=== PATIENT | male | born 1940 | race Caucasian/White ===

== ENCOUNTER 2017-11-05 08:19 | Inpatient (IN) | payer MEDICARE, BC, SELFPAY ==
[2017-11-05 08:27] VITALS: BP 149/57; PULSE 62; RESP 26; TEMP 36.6; O2SAT 97; BMI 38.1
--- NOTE | 2017-11-05 08:39 | DI.RAD.S_ITS ---
PROCEDURE: XR ABDOMEN 1V INDICATIONS: severe abdominal pain, distension TECHNIQUE: One view of the abdomen acquired. COMPARISON: [facility], CT, ABDOMEN/PELVIS WITH CONTRAST, 07/27/2017, 11:15. FINDINGS: Surgical changes and devices: None. Bowel: Bowel gas pattern is normal. Soft tissues: Less than 5 mm densities project in the region of the right kidney corresponding to nephrolithiasis visualized on the CT from 07/27/17 Bones: No suspicious bony lesions. IMPRESSION: Right nephrolithiasis. No bowel obstruction Dictated by: Wayne Fonseca M.D. on 11/05/2017 at 9:44 Approved by: Wayne Fonseca M.D. on 11/05/2017 at 9:45
--- NOTE | 2017-11-05 08:40 | ED.ABDPAIN ---
HPI - Abdominal Pain General Chief Complaint: Abdominal Pain Stated Complaint: pt states abdomen pain Time Seen by Provider: 11/05/17 08:25 Source: patient and family Mode of arrival: ambulatory Limitations: no limitations History of Present Illness HPI narrative: 77-year-old male with history of pancreatitis presents to the emergency department with complaints of the same. He has severe epigastric pain with radiation to his back and nausea that started this morning after drinking water. He denies fever or chills. He had a normal bowel movement last night. MD complaint: abdominal pain Onset (ago): hour(s) Pain Consistency: constant Location: epigastric Severity: severe Radiation: back Migration to: no migration Relieving factors: nothing Exacerbating factors: nothing Associated symptoms: nausea Related Data Home Medications Medication Instructions Recorded Confirmed fenofibrate nanocrystallized 145 mg PO QDAY #0 10/31/12 [Tricor] folic acid 1 mg PO QDAY #0 10/31/12 glyburide 5 mg PO BID #0 10/31/12 lisinopril 40 mg PO QDAY #0 10/31/12 amlodipine [Norvasc] 2.5 mg PO QDAY #0 09/13/16 hydrocortisone 1 moise TOPICAL BIDP PRN #0 09/13/16 pantoprazole 40 mg PO QDAY #0 09/13/16 albuterol sulfate [Ventolin HFA] 2 puff INH PRN PRN #0 07/27/17 apixaban [Eliquis] 5 mg PO BID #0 07/27/17 colchicine 0.6 mg PO BIDP PRN #0 07/27/17 doxazosin 8 mg PO HS #0 07/27/17 hydrocortisone 1 moise TOPICAL PRN PRN #0 07/27/17 levothyroxine [Synthroid] 25 mcg PO QAM #0 07/27/17 Previous Rx's Medication Instructions Recorded hydrocodone-acetaminophen 1 tab PO Q6HP PRN #10 tab 07/30/17 Allergies Allergy/AdvReac Type Severity Reaction Status Date / Time No Known Drug Allergies Allergy Unknown Unverified 09/06/17 12:00 [NO KNOWN DRUG ALLERGIES] metformin [METFORMIN] AdvReac Mild GI UPSET Unverified 09/06/17 12:00 Review of Systems Review of Systems All systems reviewed & are unremarkable except as noted in HPI and below Constitutional Denies chills, Denies fever(s), Denies lethargy and Denies weakness Eyes Denies change in vision, Denies eye discharge, Denies irritation and Denies loss of vision ENT Ears, Nose, Mouth, and Throat: Denies change in voice, Denies neck pain and Denies sore throat Cardiovascular Denies chest pain, Denies irregular heart rhythm, Denies lightheadedness, Denies palpitations, Denies dyspnea, Denies dyspnea on exertion and Denies orthopnea Respiratory Denies cough, Denies dyspnea, Denies dyspnea on exertion and Denies wheezing Gastrointestinal Gastrointestinal: Reports abdominal pain, Denies change in bowel habits, Denies diarrhea, Reports nausea and Denies vomiting Genitourinary Denies hematuria, Denies flank pain, Denies urinary incontinence and Denies urinary urgency Musculoskeletal Denies neck pain Integumentary/Breasts Denies pruritus, Denies erythema, Denies rash and Denies wounds Neurologic Denies confusion, Denies loss of vision and Denies weakness Psychiatric Denies anxiety, Denies confusion, Denies depression, Denies homicidal ideation and Denies suicidal ideation Endocrine Denies palpitations Hematologic/Lymphatic Denies easy bruising Allergic/Immunologic Denies wheezing [facility] Social History Smoking Status: Never smoker Exam Narrative Exam Narrative: 77-year-old male clutching his abdomen up, obviously in pain Initial Vital Signs Initial Vital Signs: Vital Signs Temperature 97.8 F 11/05/17 08:27 Pulse Rate 62 11/05/17 08:27 Respiratory Rate 26 H 11/05/17 08:27 Blood Pressure 149/57 H 11/05/17 08:27 Pulse Oximetry 97 11/05/17 08:27 Const General: cooperative, well developed and acute distress Nutritional Appearance: well nourished and obese Orientation: alert, awake, oriented x3 and not confused [facility] Head: normocephalic and atraumatic Ears: external ears normal and TM's normal bilaterally Nose: external nose normal and No nasal discharge Face and sinus: sinuses nontender, face symmetric, no sinus tenderness and No dry mucous membranes Mouth: oral mucosae normal and moist mucous membranes Teeth and gingiva: dentition normal Throat: tonsils normal and uvula midline Chest Chest: normal inspection of the chest Cardio Rate: regular rate Rhythm: regular rhythm Heart Sounds: no click, no gallops, no murmurs and no rubs Pulses: normal peripheral pulses GI Inspection: distended and obesity Palpation: firm and guarding Back/Spine/Pelvis Back: No CVA tenderness Cervical Spine: cervical ROM normal and No pain with cervical ROM Thoracic/Lumbar Spine: thoracic and lumbar spine normal to inspection Neuro General: alert, oriented x3, gait normal and no focal motor deficits Speech: speech normal Psych Appearance: well kempt Mental Status: mental status grossly normal Attitude: cooperative Thought Content: normal and suicidality Judgment: judgment good Course Orders Ordered: ED Orders 11/05/17 08:39 XR abdomen 1V Stat 11/05/17 08:40 US abdomen complete Stat 11/05/17 08:53 Complete Blood Count AUTO DIFF Stat Comprehensive Metabolic Panel Stat Lipase Stat Sodium Chloride (Normal Saline 0.9%) 1,000 mls @ 150 mls/hr IV CONT ISABEL Last Admin: 11/05/17 08:50 Dose: 150 mls/hr Discontinued Medications Hydromorphone HCl (Dilaudid) 0.5 mg IV NOW ONE Stop: 11/05/17 08:39 Last Admin: 11/05/17 08:50 Dose: 0.5 mg Hydromorphone HCl (Dilaudid) 0.5 mg IV NOW ONE Stop: 11/05/17 09:10 Last Admin: 11/05/17 09:17 Dose: 0.5 mg Ondansetron HCl (Zofran) 4 mg IV NOW ONE Stop: 11/05/17 08:39 Last Admin: 11/05/17 08:51 Dose: 4 mg Reevaluation(s) Reevaluation #1: Patient does feel somewhat better after 1st dose of Dilaudid but has residual pain. Will order a 2nd round Consultations Consultation #1: Dr. Collins is happy to accept this patient on his service Time: 10:19 Vital Signs - 8 hr 11/05/17 08:27 11/05/17 10:00 Temperature 97.8 F Pulse Rate 62 68 Respiratory Rate 26 H 15 Blood Pressure 149/57 H Blood Pressure [Right Arm] 130/64 H Pulse Oximetry 97 97 MDM - Abdominal Pain Differential Diagnosis Differential diagnosis: Likely abdominal pain and small bowel obstruction Medical Records Attestation: I reviewed the patient's medical records. Lab Data Attestation: I reviewed the patient's lab results. Result diagrams: 11/05/17 08:53 06/10/18 08:53 Lab Results 11/05/1718 Range/Units 08:53 08:53 WBC 14.1 H (4.5-11.0) X10^3/uL RBC 4.22 L (4.5-5.9) X10^6/uL Hgb 13.6 (13.5-17.5) g/dL Hct 40.4 L (41-53) % MCV 95.5 (80-100) fL MCH 32.1 (26-34) PG MCHC 33.6 (30-36) % RDW 13.6 (11.6-14.8) % Plt Count 185 (150-400) X10^3/uL Neut % (Auto) 86.8 H (50-75) % Lymph % (Auto) 8.3 L (25-40) % [place] % (Auto) 4.6 (3-14) % Eos % (Auto) 0.1 L (2-4) % Baso % (Auto) 0.2 (0-2) % Neut # (Auto) 90701 H (7172-1404) /uL Sodium 140 (137-145) mmol/L Potassium 4.9 (3.4-5.1) mmol/L Chloride 107 (98-107) mmol/L Carbon Dioxide 20 L (22-32) mmol/L BUN 31 H (9-20) mg/dL Creatinine 1.10 (0.66-1.25) mg/dL Estimated GFR > 60.0 (>60) mL/min BUN/Creatinine Ratio 28.2 H (6-22) Glucose 227 H (80-110) mg/dL Calcium 9.2 (8.4-10.2) mg/dL Total Bilirubin 0.5 (0.2-1.3) mg/dL AST 20 (17-59) IU/L ALT 43 (21-72) IU/L Alkaline Phosphatase 41 (38-126) U/L Total Protein 6.8 (6.3-8.2) g/dL Albumin 4.1 (3.5-5.0) g/dL Globulin 2.7 (1.7-4.1) g/dL Albumin/Globulin Ratio 1.5 (1.0-2.8) Lipase 28638 H (23-300) U/L Imaging Data US - abdomen: Radiologist's impression: PROCEDURE: US ABDOMEN COMPLETE INDICATIONS: POST PRANDIAL EPIGASTRIC PAIN TECHNIQUE: Real-time scanning was performed of the abdominal and retroperitoneal organs, with image documentation. COMPARISON: None. FINDINGS: Liver: Echogenic liver is present. No focal hepatic lesion is seen. The liver measures 17.9 cm in length. Gallbladder: Unremarkable. No sonographic Carpenter sign. Biliary ducts: Intrahepatic bile ducts are non-dilated. Extrahepatic bile duct caliber measures 5-6 mm. Normal is 6-7 mm or less in diameter, or 10 mm or less post-cholecystectomy. Pancreas: Pancreas not well-visualized Spleen: Spleen is normal in size and homogeneous in echotexture. Kidneys: Kidneys are normal in size and echotexture. Right kidney measures 11.9 cm long; left kidney measures 14.6 cm long. No hydronephrosis or nephrolithiasis. No solid masses. Aorta: Visualized aorta is normal in caliber at less than 3 cm. Iliacs: Proximal common iliac arteries are normal in caliber at less than 2.5 cm. IVC: Intrahepatic inferior vena cava is patent. Miscellaneous: No free abdominal fluid. IMPRESSION: Hepatic steatosis. Of note, pancreas not well sonographically visualized therefore please correlate clinically and with pancreatic enzymes if needed. Dictated by: Wayne Fonseca M.D. on 11/05/2017 at 10:05 Approved by: Wayne Fonseca M.D. on 11/05/2017 at 10:06 Discharge Plan Departure Patient Disposition: Admitted As Inpatient Clinical Impression: Pancreatitis
[2017-11-05] MEDS: SODIUM CHLORIDE 0.9% 1,000 ML 150 ML IV ×4 (08:50→21:12)
[2017-11-05] MEDS: HYDROMORPHONE 1 MG INJ 0.5 MG IV (08:50)
[2017-11-05] MEDS: ONDANSETRON 4 MG/2 ML INJ IV (08:51)
[2017-11-05 09:11] LABS: Add Manual Diff / Slide Review NO; Basophils Percent Auto 0.2 % (0-2); Eosinophils Percent Auto 0.1 % (2-4); Hematocrit 40.4 % (41-53); Hemoglobin 13.6 g/dL (13.5-17.5); Lymphocytes Percent Auto 8.3 % (25-40); Mean Corpuscular HGB Conc 33.6 % (30-36); Mean Corpuscular Hemoglobin 32.1 PG (26-34); Mean Corpuscular Volume 95.5 fL (80-100); Monocytes Percent Auto 4.6 % (3-14); Neutrophils Absolute Auto 12200 /uL (3000-5900); Neutrophils Percent Auto 86.8 % (50-75); Platelet Count 185 X10^3/uL (150-400); Red Blood Cell Count 4.22 X10^6/uL (4.5-5.9); Red Cell Distribution Width 13.6 % (11.6-14.8); White Blood Cell Count 14.1 X10^3/uL (4.5-11.0)
[2017-11-05 09:14] LABS: HEMOLYSIS < 15 (0-50); Potassium 4.9 mmol/L (3.4-5.1)
[2017-11-05 09:15] LABS: Alanine Aminotransferase 43 IU/L (21-72); Albumin 4.1 g/dL (3.5-5.0); Albumin Globulin Ratio 1.5 (1.0-2.8); Alkaline Phosphatase 41 U/L (38-126); Aspartate Aminotransferase 20 IU/L (17-59); BUN Creatinine Ratio 28.2 (6-22); Bilirubin Total 0.5 mg/dL (0.2-1.3); Blood Urea Nitrogen 31 mg/dL (9-20); Calcium 9.2 mg/dL (8.4-10.2); Carbon Dioxide 20 mmol/L (22-32); Chloride 107 mmol/L (98-107); Estimated Glomerular Filt Rate > 60.0 mL/min (>60); Globulin 2.7 g/dL (1.7-4.1); Glucose 227 mg/dL (80-110); Sodium 140 mmol/L (137-145); Total Protein 6.8 g/dL (6.3-8.2)
[2017-11-05] MEDS: HYDROMORPHONE 0.5 MG INJ IV (09:17)
[2017-11-05 09:43] LABS: Lipase 14814 U/L (23-300)
[2017-11-05 10:00] VITALS: BP 130/64; PULSE 68; RESP 15; O2SAT 97
[2017-11-05 11:02] VITALS: BP 130/64; PULSE 75; RESP 22; O2SAT 96
[2017-11-05 11:10] VITALS: BP 148/79; PULSE 70; RESP 20; TEMP 36.2; O2SAT 97
[2017-11-05 11:11] VITALS: BMI 38.5
[2017-11-05] MEDS: MORPHINE 4 MG/ML INJ IV (11:38)
[2017-11-05] MEDS: SODIUM CHLORIDE 0.9% 1,000 ML 1000 ML IV (11:38)
--- NOTE | 2017-11-05 11:55 | PM.HP.1 ---
History of Present Illness Date Patient Seen: 11/05/17 Time Patient Seen: 11:55 Chief complaint: pt states abdomen pain Narrative: This is a 77-year-old male patient of Dr. Adonis Winslow who comes in with acute abdominal pain. The discomfort started at 4:30 a.m. this morning after he woke up and had a sip of water. He describes the pain as excruciating we severe. It is across the mid abdomen. It does not radiate to the back or chest. He denies nausea, dry heaves or vomiting. Lab workup notable for lipase of over 14,000. Abdominal ultrasound without gallstones, sludge or bowel duct dilatation. Patient was hospitalized in July of this year with acute pancreatitis. At that time his abdominal ultrasound was also normal. His abdominal CT scan with contrast did not show any pancreatic mass or other concerning findings. Patient has diabetes. His triglycerides are adequately controlled on his cholesterol medications. He denies significant alcohol use. Patient History Medical History Pancreatitis (Acute) Type 2 diabetes mellitus (Acute) Paroxysmal atrial fibrillation (Acute) Obstructive sleep apnea (Acute) Hypertension (Acute) Hyperlipidemia (Acute) Deep venous thrombosis (Acute) Asthma (Acute) Hypothyroidism (Acute) Radiation proctitis (Acute) Gastric ulcer (Acute) BPH (benign prostatic hyperplasia) (Acute) Obesity (Acute) Gout (Acute) History of colon cancer (Acute) Surgical History History of appendectomy (Acute) History of partial colectomy (Acute) Family & Social History Safety & Behavioral: Feels Safe in Current Yes Environment Tobacco & Substance use: Smoking Status Never smoker alcohol intake frequency 0-2 drinks per day Substance Use Type does not use Meds Home Medications Medication Instructions Recorded Confirmed Type fenofibrate nanocrystallized 145 mg PO QDAY #0 10/31/12 History [Tricor] folic acid 1 mg PO QDAY #0 10/31/12 History glyburide 5 mg PO BID #0 10/31/12 History lisinopril 40 mg PO QDAY #0 10/31/12 History amlodipine [Norvasc] 2.5 mg PO QDAY #0 09/13/16 History hydrocortisone 1 moise TOPICAL BIDP PRN #0 09/13/16 History pantoprazole 40 mg PO QDAY #0 09/13/16 History albuterol sulfate [Ventolin HFA] 2 puff INH PRN PRN #0 07/27/17 History apixaban [Eliquis] 5 mg PO BID #0 07/27/17 History colchicine 0.6 mg PO BIDP PRN #0 07/27/17 History doxazosin 8 mg PO HS #0 07/27/17 History hydrocortisone 1 moise TOPICAL PRN PRN #0 07/27/17 History levothyroxine [Synthroid] 25 mcg PO QAM #0 07/27/17 History hydrocodone-acetaminophen 1 tab PO Q6HP PRN #10 tab 07/30/17 Rx Allergies Allergy/AdvReac Type Severity Reaction Status Date / Time No Known Drug Allergies Allergy Unknown Unverified 09/06/17 12:00 [NO KNOWN DRUG ALLERGIES] metformin [METFORMIN] AdvReac Mild GI UPSET Unverified 09/06/17 12:00 Review of Systems Review of Systems All systems reviewed & are unremarkable except as noted in HPI and below Exam Vital Signs (past 8 hours): Vital Signs - 8 hr 11/05/17 08:27 11/05/17 10:00 11/05/17 11:02 Temperature 97.8 F Pulse Rate 62 68 75 Respiratory Rate 26 H 15 22 Blood Pressure 149/57 H 130/64 H Blood Pressure [Right Arm] 130/64 H Pulse Oximetry 97 97 96 Pulse Oximetry 96 Oxygen Delivery Method Room Air Narrative Exam Narrative: GENERAL: This is an elderly male lying in bed who appears quite uncomfortable. HEAD: Atraumatic. Normocephalic. EYES: Pupils equal, round and reactive. Extraocular motions intact. No scleral icterus. No injection or drainage. OROPHARYNX: moist mucosa NECK: Trachea midline. No JVD or lymphadenopathy. CARDIOVASCULAR: Regular rate and rhythm without murmurs, gallops, or rubs. RESPIRATORY: Clear to auscultation bilaterally. GASTROINTESTINAL: Abdomen obese, soft, tender across the mid abdomen Extremities: No edema NEUROLOGICAL: Alert, well oriented, speech is intact, normal bilateral upper and lower extremity strength SKIN: warm, dry, no rash Objective Imaging US - abdomen: Radiologist's impression: Hepatic steatosis. Of note, pancreas not well sonographically visualized therefore please correlate clinically and with pancreatic enzymes if needed. Labs Result Diagrams: 11/05/17 08:53 11/05/17 08:53 Labs: Laboratory Results - last 24 hr 11/05/17 11/05/17 08:53 08:53 WBC 14.1 H RBC 4.22 L Hgb 13.6 Hct 40.4 L MCV 95.5 MCH 32.1 MCHC 33.6 RDW 13.6 Plt Count 185 Neut % (Auto) 86.8 H Lymph % (Auto) 8.3 L [place] % (Auto) 4.6 Eos % (Auto) 0.1 L Baso % (Auto) 0.2 Neut # (Auto) 04120 H Sodium 140 Potassium 4.9 Chloride 107 Carbon Dioxide 20 L BUN 31 H Creatinine 1.10 Estimated GFR > 60.0 BUN/Creatinine Ratio 28.2 H Glucose 227 H Calcium 9.2 Total Bilirubin 0.5 AST 20 ALT 43 Alkaline Phosphatase 41 Total Protein 6.8 Albumin 4.1 Globulin 2.7 Albumin/Globulin Ratio 1.5 Lipase 02357 H Assessment & Plan Plan: Assessment/Plan Narrative: 1. Acute recurrent pancreatitis: Patient presents with acute abdominal pain, lipase over 14,000, no significant alcohol history, no gallstones or sludge on ultrasound, normal triglycerides. He had previous episode of acute pancreatitis in July of this year. CT scan in July of this year unremarkable. 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 Consider outpatient GI referral. 2. Type 2 diabetes: Glucose 200 range. Hold glyburide due to uncertain p.o. intake. NovoLog sliding scale. 3. Paroxysmal atrial fibrillation, history of DVT: Continue Eliquis 5 mg twice daily. 4. Sleep apnea: Continue patient is on CPAP. 5. Hypertension, hyperlipidemia, hypothyroidism: Continue routine medications. 6. Disposition: Inpatient admit.
--- NOTE | 2017-11-05 12:05 | P.HP_ITS ---
History of Present Illness Date Patient Seen: 11/05/17 Time Patient Seen: 11:55 Chief complaint: pt states abdomen pain Narrative: This is a 77-year-old male patient of Dr. Adonis Winslow who comes in with acute abdominal pain. The discomfort started at 4:30 a.m. this morning after he woke up and had a sip of water. He describes the pain as excruciating we severe. It is across the mid abdomen. It does not radiate to the back or chest. He denies nausea, dry heaves or vomiting. Lab workup notable for lipase of over 14,000. Abdominal ultrasound without gallstones, sludge or bowel duct dilatation. Patient was hospitalized in July of this year with acute pancreatitis. At that time his abdominal ultrasound was also normal. His abdominal CT scan with contrast did not show any pancreatic mass or other concerning findings. Patient has diabetes. His triglycerides are adequately controlled on his cholesterol medications. He denies significant alcohol use. Patient History Medical History Pancreatitis (Acute) Type 2 diabetes mellitus (Acute) Paroxysmal atrial fibrillation (Acute) Obstructive sleep apnea (Acute) Hypertension (Acute) Hyperlipidemia (Acute) Deep venous thrombosis (Acute) Asthma (Acute) Hypothyroidism (Acute) Radiation proctitis (Acute) Gastric ulcer (Acute) BPH (benign prostatic hyperplasia) (Acute) Obesity (Acute) Gout (Acute) History of colon cancer (Acute) Surgical History History of appendectomy (Acute) History of partial colectomy (Acute) Family & Social History Safety & Behavioral: Feels Safe in Current Yes Environment Tobacco & Substance use: Smoking Status Never smoker alcohol intake frequency 0-2 drinks per day Substance Use Type does not use Meds Home Medications Medication Instructions Recorded Confirmed Type fenofibrate nanocrystallized 145 mg PO QDAY #0 10/31/12 History [Tricor] folic acid 1 mg PO QDAY #0 10/31/12 History glyburide 5 mg PO BID #0 10/31/12 History lisinopril 40 mg PO QDAY #0 10/31/12 History amlodipine [Norvasc] 2.5 mg PO QDAY #0 09/13/16 History hydrocortisone 1 moise TOPICAL BIDP PRN #0 09/13/16 History pantoprazole 40 mg PO QDAY #0 09/13/16 History albuterol sulfate [Ventolin HFA] 2 puff INH PRN PRN #0 07/27/17 History apixaban [Eliquis] 5 mg PO BID #0 07/27/17 History colchicine 0.6 mg PO BIDP PRN #0 07/27/17 History doxazosin 8 mg PO HS #0 07/27/17 History hydrocortisone 1 moise TOPICAL PRN PRN #0 07/27/17 History levothyroxine [Synthroid] 25 mcg PO QAM #0 07/27/17 History hydrocodone-acetaminophen 1 tab PO Q6HP PRN #10 tab 07/30/17 Rx Allergies Allergy/AdvReac Type Severity Reaction Status Date / Time No Known Drug Allergies Allergy Unknown Unverified 09/06/17 12:00 [NO KNOWN DRUG ALLERGIES] metformin [METFORMIN] AdvReac Mild GI UPSET Unverified 09/06/17 12:00 Review of Systems Review of Systems All systems reviewed & are unremarkable except as noted in HPI and below Exam Vital Signs (past 8 hours): Vital Signs - 8 hr 3 11/05/17 08:27 11/05/17 10:00 11/05/17 11:02 Temperature 97.8 F Pulse Rate 62 68 75 Respiratory Rate 26 H 15 22 Blood Pressure 149/57 H 130/64 H Blood Pressure [Right Arm] 130/64 H Pulse Oximetry 97 97 96 Pulse Oximetry 96 Oxygen Delivery Method Room Air Narrative Exam Narrative: GENERAL: This is an elderly male lying in bed who appears quite uncomfortable. HEAD: Atraumatic. Normocephalic. EYES: Pupils equal, round and reactive. Extraocular motions intact. No scleral icterus. No injection or drainage. OROPHARYNX: moist mucosa NECK: Trachea midline. No JVD or lymphadenopathy. CARDIOVASCULAR: Regular rate and rhythm without murmurs, gallops, or rubs. RESPIRATORY: Clear to auscultation bilaterally. GASTROINTESTINAL: Abdomen obese, soft, tender across the mid abdomen Extremities: No edema NEUROLOGICAL: Alert, well oriented, speech is intact, normal bilateral upper and lower extremity strength SKIN: warm, dry, no rash Objective Imaging US - abdomen: Radiologist's impression: Hepatic steatosis. Of note, pancreas not well sonographically visualized therefore please correlate clinically and with pancreatic enzymes if needed. Labs Result Diagrams: 11/05/17 08:53 11/05/17 08:53 Labs: Laboratory Results - last 24 hr 11/05/17 11/05/17 08:53 08:53 WBC 14.1 H RBC 4.22 L Hgb 13.6 Hct 40.4 L MCV 95.5 MCH 32.1 MCHC 33.6 RDW 13.6 Plt Count 185 Neut % (Auto) 86.8 H Lymph % (Auto) 8.3 L [place] % (Auto) 4.6 Eos % (Auto) 0.1 L Baso % (Auto) 0.2 Neut # (Auto) 70817 H Sodium 140 Potassium 4.9 Chloride 107 Carbon Dioxide 20 L BUN 31 H Creatinine 1.10 Estimated GFR > 60.0 BUN/Creatinine Ratio 28.2 H Glucose 227 H Calcium 9.2 Total Bilirubin 0.5 AST 20 ALT 43 Alkaline Phosphatase 41 Total Protein 6.8 Albumin 4.1 Globulin 2.7 Albumin/Globulin Ratio 1.5 Lipase 78218 H Assessment & Plan Plan: Assessment/Plan Narrative: 1. Acute recurrent pancreatitis: Patient presents with acute abdominal pain, lipase over 14,000, no significant alcohol history, no gallstones or sludge on ultrasound, normal triglycerides. He had previous episode of acute pancreatitis in July of this year. CT scan in July of this year unremarkable. 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 Consider outpatient GI referral. 2. Type 2 diabetes: Glucose 200 range. Hold glyburide due to uncertain p.o. intake. NovoLog sliding scale. 3. Paroxysmal atrial fibrillation, history of DVT: Continue Eliquis 5 mg twice daily. 4. Sleep apnea: Continue patient is on CPAP. 5. Hypertension, hyperlipidemia, hypothyroidism: Continue routine medications. 6. Disposition: Inpatient admit.
[2017-11-05] MEDS: INSULIN ASPART 100 UNIT/ML INSULN PEN SUBCUT ×2 (14:05→17:03)
[2017-11-05] MEDS: MORPHINE PCA 30 MG/30 ML PCA.VIAL 12 MG IV (14:09)
--- NOTE | 2017-11-05 15:39 | PC.NURSE ---
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 MD called and order placed for additional Morphine. Pt wearing CPAP machine while sleeping. Reamins oriented but unsteady on his feet when up. No emesis or nausea reported.
[2017-11-05 16:00] VITALS: BP 180/79; PULSE 86; RESP 22; TEMP 36.7; O2SAT 95
[2017-11-05] MEDS: MORPHINE 10 MG/ML INJ IV ×2 (16:07→18:23)
--- NOTE | 2017-11-05 17:18 | PC.NURSE ---
Addendum entered by Gail Coffey R.N. 11/05/17 19:26: Pt still reports pain 10/10, able to doze occasionally. When repositioned c/o intense cramp to R upper, middle and lower quads. Reports relief after rest period. I notified Dr Collins of my concern for patient's continued severe pain, as well as that pt's son had called me with concern, saying his father was stoic and would not normally complain of anything. HR slightly tachy, 92-106 bpm, regular rate. Hypertensive, BP 160's/70's. Dr Collins notified of PIPE BOWL PAINT TRIMMER use 30 mg since set up, in addition to 2 doses of IVP morphine. He ordered to increase PIPE BOWL PAINT TRIMMER dose to 2 mg, keep 10 min lockout same and increase 4 hr limit to 40 mg which has been done. Ordered to give NS 1L bolus now which is infusing. Ordered CT scan with oral and IV contrast. I notified Clemencia down in [place], she came up with oral contrast which patient is drinking. Original Note: At first assessment, pt rating pain 10 on pain scale, moaning at times, also dozing off for few minutes at-a-time, snoring occasionally. Reports sharp upper abdomen pain wakes him back up. He is actively using PIPE BOWL PAINT TRIMMER, has used 9mg since set up. New prn order for Morphine IV given, although due to PIPE BOWL PAINT TRIMMER use, pt's age and hx of sleep apnea I only gave him 4 mg dose. Since that time, Wayne mostly dozing, snoring occasionally. Wearing CPAP, RA oxygen saturation 96%, continuous pulse ox left in place r/t PIPE BOWL PAINT TRIMMER use. HR regular, hypertensive. SCD's placed. Abdomen round, rotund, distended but soft. Reports some flatus, BT hypoactive. Ice chips & chapstick given, refused other clear liquid intake at this time. CBG 242, 4 units Novolog given per algorithm. IVF infusing at 150 ml/hour. Oriented x 3, instructed to use call button & have staff present if he needs OOB, call button at his side. He agrees to this plan.
[2017-11-05] MEDS: SODIUM CHLORIDE 0.9% 100 ML 1000 ML IV (19:00)
--- NOTE | 2017-11-05 19:01 | DI.CT.S_ITS ---
PROCEDURE: CT ABDOMEN PELVIS W CON INDICATIONS: Severe pain TECHNIQUE: After the administration of oral and intravenous contrast, 5 mm thick sections acquired from the diaphragms to the symphysis. 5 mm thick coronal and sagittal reformats were performed. For radiation dose reduction, the following was used: automated exposure control, adjustment of mA and/or kV according to patient size. COMPARISON: [facility], CT, ABDOMEN/PELVIS WITH CONTRAST, 07/27/2017, 11:15. FINDINGS: Image quality: Excellent. ABDOMEN: Lung bases: Dependent atelectasis/scarring. Solid organs: Back steatosis. Gallbladder contains punctate 1 mm dependent gallstones.. Biliary system is non-dilated. Pancreas enhances normally. However there is severe diffuse peripancreatic stranding fluid and edema in keeping with acute pancreatitis. There is also inflammatory changes seen around the duodenum although this could be reactive. Spleen is normal in size and enhancement. No adrenal nodules. Kidneys are normal in size and enhancement, without hydronephrosis. Nonobstructive right renal calculi are seen measuring up to 2 mm. Peritoneum and bowel: Stomach is distended. The small bowel, and colon loops are normal in caliber and wall thickness. No free fluid or air. Nodes and vessels: No retroperitoneal or mesenteric adenopathy. Aorta and inferior vena cava are normal in caliber. Miscellaneous: Mild fat-containing midline ventral hernia. PELVIS: Genitourinary: Bladder wall thickness is normal. Miscellaneous: Bilateral fat containing inguinal hernias. Bones: No suspicious bony lesions. No vertebral body compression fractures. IMPRESSION: Peripancreatic fluid and edema and inflammatory stranding in keeping with acute pancreatitis. Please correlate clinically with pancreatic enzymes. There may be acute infectious or inflammatory duodenitis although the appearance could be reactive to pancreatitis. If clinically necessary, endoscopy could be performed Nonobstructive right renal calculi. Cholelithiasis. Hepatic steatosis. Dictated by: Wayne Fonseca M.D. on 11/05/2017 at 20:57 Approved by: Wayne Fonseca M.D. on 11/05/2017 at 21:04
[2017-11-05 21:00] VITALS: BP 165/88; PULSE 102; RESP 18; TEMP 36.8; O2SAT 93
[2017-11-05] MEDS: APIXABAN 5 MG TABLET PO (21:13)
[2017-11-05] MEDS: METOPROLOL ER 50 MG TABLET PO (21:13)
[2017-11-05] MEDS: DOXAZOSIN 4 MG TABLET 8 MG PO (21:13)
[2017-11-05] MEDS: MORPHINE PCA 30 MG/30 ML PCA.VIAL IV (23:58)
[2017-11-06] VITALS (15 sets, daily range): BP systolic 139–158; BP diastolic 73–83; PULSE 95–109; RESP 14–20; TEMP 36.4–37.1; O2SAT 88–93
[2017-11-06] MEDS: MORPHINE 10 MG/ML INJ IV (00:31)
[2017-11-06] MEDS: SODIUM CHLORIDE 0.9% 1,000 ML 150 ML IV ×2 (03:48→10:53)
[2017-11-06] MEDS: ONDANSETRON 4 MG/2 ML INJ IV ×3 (04:51→16:04)
[2017-11-06] MEDS: MORPHINE PCA 30 MG/30 ML PCA.VIAL IV ×2 (05:44→13:11)
[2017-11-06 06:05] LABS: Add Manual Diff / Slide Review NO; Basophils Percent Auto 0.3 % (0-2); Hematocrit 44.2 % (41-53); Hemoglobin 14.7 g/dL (13.5-17.5); Lymphocytes Percent Auto 3.1 % (25-40); Mean Corpuscular HGB Conc 33.3 % (30-36); Mean Corpuscular Volume 96.2 fL (80-100); Monocytes Percent Auto 5.2 % (3-14); Neutrophils Absolute Auto 18900 /uL (3000-5900); Neutrophils Percent Auto 91.4 % (50-75); Platelet Count 193 X10^3/uL (150-400); White Blood Cell Count 20.7 X10^3/uL (4.5-11.0)
[2017-11-06 06:14] LABS: Alanine Aminotransferase 33 IU/L (21-72); Albumin 3.9 g/dL (3.5-5.0); Albumin Globulin Ratio 1.4 (1.0-2.8); Alkaline Phosphatase 37 U/L (38-126); Aspartate Aminotransferase 18 IU/L (17-59); BUN Creatinine Ratio 26.7 (6-22); Bilirubin Total 0.7 mg/dL (0.2-1.3); Blood Urea Nitrogen 24 mg/dL (9-20); Calcium 8.1 mg/dL (8.4-10.2); Carbon Dioxide 18 mmol/L (22-32); Chloride 109 mmol/L (98-107); Estimated Glomerular Filt Rate > 60.0 mL/min (>60); Globulin 2.8 g/dL (1.7-4.1); Glucose 173 mg/dL (80-110); HEMOLYSIS 25 (0-50); Potassium 4.6 mmol/L (3.4-5.1); Sodium 142 mmol/L (137-145); Total Protein 6.7 g/dL (6.3-8.2)
[2017-11-06] MEDS: INSULIN ASPART 100 UNIT/ML INSULN PEN SUBCUT ×2 (08:16→13:09)
--- NOTE | 2017-11-06 08:47 | PC.NURSE ---
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 STRATEGY LEAD Morphine in place & pt using appropriately. Morphine IVP 10mg given X1 for 8/10 upper abd pain. Good relief. Denied nausea at beginning of shift, tolerating small amounts of ice chips. Around 0415, pt nauseated, belching, no emesis. Dr. Collins paged and return call, new order for prn Zofran rec'd. Zofran IVP 4mg given at 0455 with satisfactory effect. Pt states when he belches, he gets relief. Abd round, distended, semi-soft to firm, not taught firm. Pt on continuous O2 monitoring throughout shift. At beginning of shift, pt 87-91% on CPAP. RT paged and asked for connector to bleed in O2 to pt's CPAP. Upon reassessment O2 increased to 92-93% on 2L.
[2017-11-06] MEDS: LISINOPRIL 20 MG TABLET 40 MG PO (09:49)
[2017-11-06] MEDS: APIXABAN 5 MG TABLET PO (09:50)
[2017-11-06] MEDS: AMLODIPINE 2.5 MG TABLET PO (09:50)
[2017-11-06] MEDS: ATORVASTATIN 10 MG TABLET PO (09:50)
[2017-11-06] MEDS: FENOFIBRATE 145 MG TABLET PO (09:51)
[2017-11-06] MEDS: LEVOTHYROXINE 25 MCG TABLET PO (09:55)
--- NOTE | 2017-11-06 09:57 | PM.PN.1 ---
Subjective Date Patient Seen: 11/06/17 Time Patient Seen: 09:57 Interval history: Patient states he feels exhausted and continues to be nauseated. He says his abdominal area feels little more distended today. Exam Vital Signs (past 8 hours): Vital Signs - 8 hr 11/06/17 02:05 11/06/17 03:47 11/06/17 04:00 Temperature 97.6 F Pulse Rate 104 H 105 H Respiratory Rate 20 Blood Pressure 155/78 H Pulse Oximetry 92 92 91 11/06/17 04:52 11/06/17 09:49 Temperature Pulse Rate 103 H 98 H Respiratory Rate 14 Blood Pressure 139/77 H Pulse Oximetry 93 Pulse Oximetry 93 Oxygen Delivery Method Nasal Cannula Oxygen Flow Rate 2 Const General: cooperative and other (Appears uncomfortable.) Nutritional Appearance: obese Orientation: alert, awake and oriented x3 HENMT Head: normocephalic and atraumatic Mouth: oral mucosa abnormal (Dry.) Eyes General: appearance normal, both eyes and all related structures Pupils: PERRL and pupil size bilaterally (2mm) Neck Other: Trachea midline no neck vein distention no lymphadenopathy Chest Chest: normal inspection of the chest Resp Effort & Inspection: able to speak in complete sentences Auscultation: clear to auscultation bilaterally Other: Respiratory rate 14-20 Cardio Rate: regular rate and tachycardic Heart Sounds: S1 normal and S2 normal GI Inspection: distended Palpation: tender (Diffusely) Percussion: tympanic to percussion (Over epigastrium) Auscultation: normal bowel sounds Other: Bladder normal Skin General: dry skin and warm Neuro General: alert, awake and oriented x3 Cognition: normal cognition Speech: speech normal Motor: muscle tone normal throughout Extrem Right lower extremity: lower leg (Brown venous stasis rash noted.) Psych Appearance: grossly normal Mental Status: mental status grossly normal Speech and Movement: speech and movement normal Affect: normal affect Attitude: cooperative Thought Process: normal Thought Content: normal Judgment: judgment good Objective Labs Result Diagrams: 11/06/17 05:43 11/06/17 05:43 Labs: Laboratory Results - last 24 hr 11/06/17 11/06/17 05:43 05:43 WBC 20.7 H RBC 4.60 Hgb 14.7 Hct 44.2 MCV 96.2 MCH 32.0 MCHC 33.3 RDW 14.0 Plt Count 193 Neut % (Auto) 91.4 H Lymph % (Auto) 3.1 L [place] % (Auto) 5.2 Eos % (Auto) 0.0 L Baso % (Auto) 0.3 Neut # (Auto) 66733 H Sodium 142 Potassium 4.6 Chloride 109 H Carbon Dioxide 18 L BUN 24 H Creatinine 0.90 Estimated GFR > 60.0 BUN/Creatinine Ratio 26.7 H Glucose 173 H Calcium 8.1 L Total Bilirubin 0.7 AST 18 ALT 33 Alkaline Phosphatase 37 L Total Protein 6.7 Albumin 3.9 Globulin 2.8 Albumin/Globulin Ratio 1.4 Assessment & Plan Plan: Assessment/Plan Narrative: 1. Acute recurrent pancreatitis: Patient presents with acute abdominal pain, lipase over 14,000, no significant alcohol history, no gallstones or sludge on ultrasound, normal triglycerides. He had previous episode of acute pancreatitis in July of this year. CT scan in July of this year unremarkable. He says he feels a little bit better today but complains that his abdomen is slightly more distended and continues to have marked amount of abdominal tenderness and pain. His CT from last evening revealed peripancreatic fluid and edema and inflammatory stranding in keeping with his acute pancreatitis. There may be acute infectious or inflammatory duodenitis although the parents could also be reflective of the pancreatitis. 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 I have also placed an order for MRCP today. Consider outpatient GI referral. A.m. labs of CBC and comprehensive metabolic panel. 2. Type 2 diabetes: Glucose 170-180 range. Hold glyburide due to uncertain p.o. intake. NovoLog sliding scale. 3. Paroxysmal atrial fibrillation, history of DVT: Continue Eliquis 5 mg twice daily. 4. Sleep apnea: Continues patient is on his nighttime CPAP. During the night his saturations dropped to 87-91 at which time Respiratory therapy at and 0 2 to the patient's CPAP. His saturations increased to 93. He remains nn 2 L nasal prong oxygen at this time. 5. Hypertension, hyperlipidemia, hypothyroidism: Continue routine medications. 6. Disposition: Inpatient admit. Time Spent With Patient Time with patient: Greater than 35 minutes Quality VTE Deep Vein Thrombosis/Pulmonary Embolism Present on Admission: No
--- NOTE | 2017-11-06 10:03 | P.PN_ITS ---
Subjective Date Patient Seen: 11/06/17 Time Patient Seen: 09:57 Interval history: Patient states he feels exhausted and continues to be nauseated. He says his abdominal area feels little more distended today. Exam Vital Signs (past 8 hours): Vital Signs - 8 hr 3 11/06/17 02:05 11/06/17 03:47 11/06/17 04:00 Temperature 97.6 F Pulse Rate 104 H 105 H Respiratory Rate 20 Blood Pressure 155/78 H Pulse Oximetry 92 92 91 3 11/06/17 04:52 11/06/17 09:49 Temperature Pulse Rate 103 H 98 H Respiratory Rate 14 Blood Pressure 139/77 H Pulse Oximetry 93 Pulse Oximetry 93 Oxygen Delivery Method Nasal Cannula Oxygen Flow Rate 2 Const General: cooperative and other (Appears uncomfortable.) Nutritional Appearance: obese Orientation: alert, awake and oriented x3 HENMT Head: normocephalic and atraumatic Mouth: oral mucosa abnormal (Dry.) Eyes General: appearance normal, both eyes and all related structures Pupils: PERRL and pupil size bilaterally (2mm) Neck Other: Trachea midline no neck vein distention no lymphadenopathy Chest Chest: normal inspection of the chest Resp Effort & Inspection: able to speak in complete sentences Auscultation: clear to auscultation bilaterally Other: Respiratory rate 14-20 Cardio Rate: regular rate and tachycardic Heart Sounds: S1 normal and S2 normal GI Inspection: distended Palpation: tender (Diffusely) Percussion: tympanic to percussion (Over epigastrium) Auscultation: normal bowel sounds Other: Bladder normal Skin General: dry skin and warm Neuro General: alert, awake and oriented x3 Cognition: normal cognition Speech: speech normal Motor: muscle tone normal throughout Extrem Right lower extremity: lower leg (Brown venous stasis rash noted.) Psych Appearance: grossly normal Mental Status: mental status grossly normal Speech and Movement: speech and movement normal Affect: normal affect Attitude: cooperative Thought Process: normal Thought Content: normal Judgment: judgment good Objective Labs Result Diagrams: 11/06/17 05:43 11/06/17 05:43 Labs: Laboratory Results - last 24 hr 11/06/17 11/06/17 05:43 05:43 WBC 20.7 H RBC 4.60 Hgb 14.7 Hct 44.2 MCV 96.2 MCH 32.0 MCHC 33.3 RDW 14.0 Plt Count 193 Neut % (Auto) 91.4 H Lymph % (Auto) 3.1 L [place] % (Auto) 5.2 Eos % (Auto) 0.0 L Baso % (Auto) 0.3 Neut # (Auto) 45170 H Sodium 142 Potassium 4.6 Chloride 109 H Carbon Dioxide 18 L BUN 24 H Creatinine 0.90 Estimated GFR > 60.0 BUN/Creatinine Ratio 26.7 H Glucose 173 H Calcium 8.1 L Total Bilirubin 0.7 AST 18 ALT 33 Alkaline Phosphatase 37 L Total Protein 6.7 Albumin 3.9 Globulin 2.8 Albumin/Globulin Ratio 1.4 Assessment & Plan Plan: Assessment/Plan Narrative: 1. Acute recurrent pancreatitis: Patient presents with acute abdominal pain, lipase over 14,000, no significant alcohol history, no gallstones or sludge on ultrasound, normal triglycerides. He had previous episode of acute pancreatitis in July of this year. CT scan in July of this year unremarkable. He says he feels a little bit better today but complains that his abdomen is slightly more distended and continues to have marked amount of abdominal tenderness and pain. His CT from last evening revealed peripancreatic fluid and edema and inflammatory stranding in keeping with his acute pancreatitis. There may be acute infectious or inflammatory duodenitis although the parents could also be reflective of the pancreatitis. Plan: IV hydration, morphine [employer] FURNISHINGS (17 mg on the fast food shift lead ), Zofran for his nausea, clear liquid diet as tolerated. I have also placed an order for MRCP today. Consider outpatient GI referral. A.m. labs of CBC and comprehensive metabolic panel. 2. Type 2 diabetes: Glucose 170-180 range. Hold glyburide due to uncertain p.o. intake. NovoLog sliding scale. 3. Paroxysmal atrial fibrillation, history of DVT: Continue Eliquis 5 mg twice daily. 4. Sleep apnea: Continues patient is on his nighttime CPAP. During the night his saturations dropped to 87-91 at which time Respiratory therapy at and 0 2 to the patient's CPAP. His saturations increased to 93. He remains nn 2 L nasal prong oxygen at this time. 5. Hypertension, hyperlipidemia, hypothyroidism: Continue routine medications. 6. Disposition: Inpatient admit. Time Spent With Patient Time with patient: Greater than 35 minutes Quality VTE Deep Vein Thrombosis/Pulmonary Embolism Present on Admission: No
--- NOTE | 2017-11-06 13:00 | PM.DS.1 ---
History of Present Illness Date Patient Seen: 11/06/17 Time Patient Seen: 13:01 Chief complaint: Pancreatitis Narrative: This is a 77-year-old male patient of Dr. Adonis Winslow who comes in with acute abdominal pain. The discomfort started at 4:30 a.m. November 05 after he woke up and had a sip of water. He describes the pain as excruciating we severe. It is across the mid abdomen. It does not radiate to the back or chest. He denies nausea, dry heaves or vomiting. Lab workup notable for lipase of over 14,000. Abdominal ultrasound without gallstones, sludge or bowel duct dilatation. Patient was hospitalized in July of this year with acute pancreatitis. At that time his abdominal ultrasound was also normal. His abdominal CT scan with contrast did not show any pancreatic mass or other concerning findings. Patient has diabetes. His triglycerides are adequately controlled on his cholesterol medications. He denies significant alcohol use. Discharge Providers Date of admission: 11/05/17 10:58 Primary care physician: Adonis Winslow MD Discharge provider: KRISTA Stewart Summary Discharge Diagnosis: 1. Acute pancreatitis 2. Type 2 diabetes mellitus 3. Paroxysmal atrial fibrillation 4. Obstructive sleep apnea 5. Asthma 6. Hyperlipidemia 7. Hypertension 8. Obesity Hospital Course: This is a summary of the 24 hr stay for this individual with acute pancreatitis prior to his transfer to [facility]. He was admitted from the emergency department yesterday morning with excruciating and severe abdominal discomfort through his mid abdomen. His abdominal CT with contrast did not show any pancreatic mass or other concerning findings. His lipase level was greater than 14,000, white count elevated at 20.7, total bili of 0.7, alkaline phosphatase 37. His abdominal distention has increased over night and this morning, and he now has diffuse tenderness on light palpation throughout the abdomen. He was scheduled to have an MRCP today but due to his size was not able to fit into the MRI. 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 He has not had any emesis or hemoptysis. The patient uses CPAP while at sleep or taking naps. He was slightly tachycardic at 105, afebrile, respiratory rate 14 to 20 with 2 L nasal prong oxygen, saturations remained stable in the low 90s. He is currently +3.5 L fluid balance. His type 2 diabetes has been managed by sliding scale insulin with glucoses ranging between 275-164. Mr. Nance will benefit from a higher level of care and follow-up with Gastroenterology. Both patient and his daughter were notified and are in agreement to the transfer. Status at Discharge Cognitive/behavioral status at discharge: Patient appears to becoming markedly fatigued. Overall status at discharge: patient is not back to baseline Time Spent with Patient Greater than 30 minutes Exam Vital Signs (past 8 hours): Vital Signs - 8 hr 11/06/17 09:00 11/06/17 09:49 11/06/17 10:04 Temperature 98.3 F Pulse Rate 98 H Respiratory Rate 20 Blood Pressure 139/77 H 139/77 H Pulse Oximetry 92 93 Pulse Oximetry 93 Oxygen Delivery Method Nasal Cannula Oxygen Flow Rate 1 Narrative Exam Narrative: General: cooperative and other (Appears uncomfortable.) Nutritional Appearance: obese Orientation: alert, awake and oriented x3 HENMT Head: normocephalic and atraumatic Mouth: oral mucosa abnormal (Dry.) Eyes General: appearance normal, both eyes and all related structures Pupils: PERRL and pupil size bilaterally (2mm) Neck Other: Trachea midline no neck vein distention no lymphadenopathy Chest Chest: normal inspection of the chest Resp Effort & Inspection: able to speak in complete sentences Auscultation: clear to auscultation bilaterally Other: Respiratory rate 14-20 Cardio Rate: regular rate and tachycardic Heart Sounds: S1 normal and S2 normal GI Inspection: distended Palpation: tender (Diffusely) Percussion: tympanic to percussion (Over epigastrium) Auscultation: normal bowel sounds Other: Bladder normal Skin General: dry skin and warm Neuro General: alert, awake and oriented x3 Cognition: normal cognition Speech: speech normal Motor: muscle tone normal throughout Extrem Right lower extremity: lower leg (Brown venous stasis rash noted.) Psych Appearance: grossly normal Mental Status: mental status grossly normal Speech and Movement: speech and movement normal Affect: normal affect Attitude: cooperative Thought Process: normal Thought Content: normal Judgment: judgment good Objective Labs Result Diagrams: 11/06/17 05:43 11/06/17 05:43 Labs: Laboratory Results - last 24 hr 11/06/17 11/06/17 05:43 05:43 WBC 20.7 H RBC 4.60 Hgb 14.7 Hct 44.2 MCV 96.2 MCH 32.0 MCHC 33.3 RDW 14.0 Plt Count 193 Neut % (Auto) 91.4 H Lymph % (Auto) 3.1 L [place] % (Auto) 5.2 Eos % (Auto) 0.0 L Baso % (Auto) 0.3 Neut # (Auto) 00632 H Sodium 142 Potassium 4.6 Chloride 109 H Carbon Dioxide 18 L BUN 24 H Creatinine 0.90 Estimated GFR > 60.0 BUN/Creatinine Ratio 26.7 H Glucose 173 H Calcium 8.1 L Total Bilirubin 0.7 AST 18 ALT 33 Alkaline Phosphatase 37 L Total Protein 6.7 Albumin 3.9 Globulin 2.8 Albumin/Globulin Ratio 1.4 PROCEDURE: CT ABDOMEN PELVIS W CON INDICATIONS: Severe pain TECHNIQUE: After the administration of oral and intravenous contrast, 5 mm thick sections acquired from the diaphragms to the symphysis. 5 mm thick coronal and sagittal reformats were performed. For radiation dose reduction, the following was used: automated exposure control, adjustment of mA and/or kV according to patient size. COMPARISON: [facility], CT, ABDOMEN/PELVIS WITH CONTRAST, 07/27/2017, 11:15. FINDINGS: Image quality: Excellent. ABDOMEN: Lung bases: Dependent atelectasis/scarring. Solid organs: Back steatosis. Gallbladder contains punctate 1 mm dependent gallstones.. Biliary system is non-dilated. Pancreas enhances normally. However there is severe diffuse peripancreatic stranding fluid and edema in keeping with acute pancreatitis. There is also inflammatory changes seen around the duodenum although this could be reactive. Spleen is normal in size and enhancement. No adrenal nodules. Kidneys are normal in size and enhancement, without hydronephrosis. Nonobstructive right renal calculi are seen measuring up to 2 mm. Peritoneum and bowel: Stomach is distended. The small bowel, and colon loops are normal in caliber and wall thickness. No free fluid or air. Nodes and vessels: No retroperitoneal or mesenteric adenopathy. Aorta and inferior vena cava are normal in caliber. Miscellaneous: Mild fat-containing midline ventral hernia. PELVIS: Genitourinary: Bladder wall thickness is normal. Miscellaneous: Bilateral fat containing inguinal hernias. Bones: No suspicious bony lesions. No vertebral body compression fractures. IMPRESSION: Peripancreatic fluid and edema and inflammatory stranding in keeping with acute pancreatitis. Please correlate clinically with pancreatic enzymes. There may be acute infectious or inflammatory duodenitis although the appearance could be reactive to pancreatitis. If clinically necessary, endoscopy could be performed Nonobstructive right renal calculi. Cholelithiasis. Hepatic steatosis. Dictated by: Wayne Fonseca M.D. on 11/05/2017 at 20:57 Approved by: Wayne Fonseca M.D. on 11/05/2017 at 21:04 Patient: Antonio Nance : 1940 Age/Sex: 77 / M Date of Service: 11/05/17 PROCEDURE: US ABDOMEN COMPLETE INDICATIONS: POST PRANDIAL EPIGASTRIC PAIN TECHNIQUE: Real-time scanning was performed of the abdominal and retroperitoneal organs, with image documentation. COMPARISON: None. FINDINGS: Liver: Echogenic liver is present. No focal hepatic lesion is seen. The liver measures 17.9 cm in length. Gallbladder: Unremarkable. No sonographic Carpenter sign. Biliary ducts: Intrahepatic bile ducts are non-dilated. Extrahepatic bile duct caliber measures 5-6 mm. Normal is 6-7 mm or less in diameter, or 10 mm or less post-cholecystectomy. Pancreas: Pancreas not well-visualized Spleen: Spleen is normal in size and homogeneous in echotexture. Kidneys: Kidneys are normal in size and echotexture. Right kidney measures 11.9 cm long; left kidney measures 14.6 cm long. No hydronephrosis or nephrolithiasis. No solid masses. Aorta: Visualized aorta is normal in caliber at less than 3 cm. Iliacs: Proximal common iliac arteries are normal in caliber at less than 2.5 cm. IVC: Intrahepatic inferior vena cava is patent. Miscellaneous: No free abdominal fluid. IMPRESSION: Hepatic steatosis. Of note, pancreas not well sonographically visualized therefore please correlate clinically and with pancreatic enzymes if needed. Dictated by: Wayne Fonseca M.D. on 11/05/2017 at 10:05 Approved by: Wayne Fonseca M.D. on 11/05/2017 at 10:06 PROCEDURE: XR ABDOMEN 1V INDICATIONS: severe abdominal pain, distension TECHNIQUE: One view of the abdomen acquired. COMPARISON: [facility], CT, ABDOMEN/PELVIS WITH CONTRAST, 07/27/2017, 11:15. FINDINGS: Surgical changes and devices: None. Bowel: Bowel gas pattern is normal. Soft tissues: Less than 5 mm densities project in the region of the right kidney corresponding to nephrolithiasis visualized on the CT from 07/27/17 Bones: No suspicious bony lesions. IMPRESSION: Right nephrolithiasis. No bowel obstruction Dictated by: Wayne Fonseca M.D. on 11/05/2017 at 9:44 Approved by: Wayne Fonseca M.D. on 11/05/2017 at 9:45 Discharge Plan Discharge Plan Patient Disposition: [facility] Under care of provider: DR. Ian Winslow PCP; Dr Gómez accepting physician at [facility] Discharge Health Status Precautions: [place] Provider Discharge Instructions Diet: Nothing by Mouth Activity: As tolerated. Oxygen: CPAP while sleeping. May need supplemental oxygen. Discharge Data Primary Care Provider: Adonis Winslow Attending Provider: Gary Collins Admit Date/Time: 11/05/17 10:58 Quality VTE Deep Vein Thrombosis/Pulmonary Embolism Present on Admission: No
--- NOTE | 2017-11-06 15:32 | PC.NURSE ---
Called report to receiving RN Amada at [place]. Pt awaiting ambulance crew to discharge to [place]. All belongings packed up and ready to go with Pt in ambulance. Pt is wearing his glasses and his ring. Cell phone was placed in his cpap case.
--- NOTE | 2017-11-06 16:09 | PC.NURSE ---
TRANSFER NOTE: Patient premedicated with Morphine 5 mg bolus via POWDER NIPPER, then DC'd from POWDER NIPPER tubing/pump prior to transfer. Patient transfered from bed to EMT jayce. He reports good pain relief, dozing at times. Looks very fatigued, exhausted but Ox3, aware that he is going to [place] for higher level of care. He started hicupping, no emesis but reports some nausea, Zofran 4 mg given IV just prior to them wheeling him down hallway. Emesis bag at side. 2L O2 sat 93-94%, other VS stable. Amanda baires nurse gave full patient report to hazmat cdl driver & nurse. Amanda also gave accepting RN Amada at [facility] report via phone call. Packet sent with them. EMT's left room with patient at 1602.
== END 2017-11-06 16:02 | disposition short-term general hospital (02) | DRG 440 ==
LOC: ED 10:13 → AC 10:58
PROVIDERS: Admitting Provider Internal Medicine; Emergency Provider Emergency Medicine; PCP Internal Medicine; Visit Provider Internal Medicine
DX: K85.90 Acute pancreatitis without necrosis or infection, unspecified (principal); E11.9 Type 2 diabetes mellitus without complications; Z79.84 Long term (current) use of oral hypoglycemic drugs; I48.0 Paroxysmal atrial fibrillation; Z79.01 Long term (current) use of anticoagulants; G47.33 Obstructive sleep apnea (adult) (pediatric); I10 Essential (primary) hypertension; E78.5 Hyperlipidemia, unspecified; E03.9 Hypothyroidism, unspecified; E66.9 Obesity, unspecified; Z68.38 Body mass index [BMI] 38.0-38.9, adult
CPT/HCPCS: 36415; 36591; 74018; 74177; 76700; 80053; 82962; 83690; 85025; 94760; 96374; 96375; 99283; 99284; J1170; J2270; J2405; Q9967

== ENCOUNTER 2018-03-13 06:42 | Day surgery (SDC) | payer MEDICARE, BC, SELFPAY ==
[2018-03-13] MEDS: PROPARACAINE 0.5% OPHTH SOL 2 DROPS EYE-OP (07:27)
[2018-03-13] MEDS: CATARACT EYE COMPOUND (10 DROPS/SYRINGE) 3 DROPS EYE-OP (07:36)
[2018-03-13 07:43] VITALS: BP 128/64; PULSE 66; RESP 16; TEMP 36.9; O2SAT 95; BMI 37.3
--- NOTE | 2018-03-13 08:12 | PM.PREOP ---
Pre-operative Note Interval Note Changes: No
--- NOTE | 2018-03-13 08:13 | P.OP.PRE_ITS ---
Pre-operative Note Interval Note Changes: No
--- NOTE | 2018-03-13 08:13 | PM.OP.1 ---
Operative Date/Time/Diagnoses Pre-op diagnosis: Nuclear cataract left eye Procedure & Clinicians Surgeon: Elliott Valero Anesthesia Type: MAC +/- and Sedation Operative Notes Procedure in detail: Patient brought to the operating suite. Tetracaine drops placed in the left eye. Marking instrument was used to portillo the verticle and horizontal meridian. Patient was prepped and draped in sterile manner. Wire lid speculum was placed in the eye. Marking instrument was used to portillo the 85 degree meridian. Betadine drops were placed on the eye. This was irrigated. Lidocaine jelly was placed on the eye. A paracentesis port was created with a side-port blade. 0.1 mL 1% preservative free lidocaine was injected into the anterior chamber. The anterior chamber was deepened with viscoelastic. 2.6 mm keratome was used to create a temporal clear corneal incision. Cystotome and Utrata forceps were used to create continuous tear capsulorrhexis. Balanced salt solution was used to hydro dissect the nucleus. The phacoemulsification handpiece was inserted and the nucleus was removed using the stop and chop technique. The iris was floppy and miotic. The irrigation aspiration handpiece was inserted and the remaining cortex was removed. Anterior chamber was deepened with viscoelastic. An Barrientos [id number] intraocular lens with a power of 29.0 was injected into the capsular bag. Irrigation aspiration handpiece was inserted and the remaining viscoelastic was removed. The lens was rotated to the 85 degree meridian. Incision was hydrated with balanced salt solution and found to be leak free with pressure with Weck-Thelma sponges. 0.1 mL Vigamox injected anterior chamber. 0.3 mL Kenalog 10 mg was injected subconjunctivally. Lid speculum was removed. The patient left the operating room in excellent condition. Complications: none Condition: stable Disposition: same day surgery
[2018-03-13] MEDS: TETRACAINE 0.5% OPHTH DROPS 15 ML 2 DROPS EYE-LEFT (08:34)
[2018-03-13] MEDS: MOXIFLOXACIN OPHTH DROPS 3 ML BOTTLE 2 DROPS INJ (08:34)
[2018-03-13] MEDS: BALANCED SALT IRRIG SOLN NO.2 500 ML, EPINEPHrine 1 MG IRR (08:34)
[2018-03-13] MEDS: CHONDROIDTIN/SOD HYALURONATE 1.05 ML SYRINGE INTRAOCULA (08:34)
[2018-03-13] MEDS: LIDOCAINE JELLY 2% 5 ML 1 APPLIC TOP (08:34)
[2018-03-13] MEDS: PHENYLEPHRINE/LIDOCAINE VIAL (OR) 0.2 ML EYE-OP (08:34)
[2018-03-13] MEDS: TRIAMCINOLONE 50 MG/5 ML VIAL INJ (08:34)
[2018-03-13 08:40] VITALS: BP 114/63; PULSE 69; RESP 16; TEMP 36.4; O2SAT 96
== END 2018-03-13 08:50 ==
LOC: OR 06:44
PROVIDERS: PCP Internal Medicine; Visit Provider Ophthalmology
DX: H25.12 Age-related nuclear cataract, left eye (principal); E11.9 Type 2 diabetes mellitus without complications; E78.5 Hyperlipidemia, unspecified; I10 Essential (primary) hypertension; G47.33 Obstructive sleep apnea (adult) (pediatric); J44.9 Chronic obstructive pulmonary disease, unspecified; I48.91 Unspecified atrial fibrillation; D64.9 Anemia, unspecified; M06.9 Rheumatoid arthritis, unspecified; I51.9 Heart disease, unspecified; Z79.84 Long term (current) use of oral hypoglycemic drugs
CPT/HCPCS: J0171; J2250; J3010; J3301; V2787

== ENCOUNTER 2018-03-27 06:46 | Day surgery (SDC) | payer MEDICARE, BC, SELFPAY ==
[2018-03-27 07:10] VITALS: BMI 38.0
[2018-03-27] MEDS: PROPARACAINE 0.5% OPHTH SOL 2 DROPS EYE-OP (07:19)
[2018-03-27] MEDS: CATARACT EYE COMPOUND (10 DROPS/SYRINGE) 3 DROPS EYE-OP (07:20)
--- NOTE | 2018-03-27 08:17 | SUR.OPER ---
Supine on eye stretcher, head on extension cradle secured with tape. Arms tucked at sides with blanket. Pillow under knees.
[2018-03-27] MEDS: PHENYLEPHRINE/LIDOCAINE VIAL (OR) 0.2 ML EYE-OP (08:20)
[2018-03-27] MEDS: MOXIFLOXACIN OPHTH DROPS 3 ML BOTTLE 2 DROPS INJ (08:20)
[2018-03-27] MEDS: LIDOCAINE JELLY 2% 5 ML 1 APPLIC TOP (08:21)
[2018-03-27] MEDS: TRIAMCINOLONE 50 MG/5 ML VIAL INJ (08:21)
[2018-03-27] MEDS: CHONDROIDTIN/SOD HYALURONATE 1.05 ML SYRINGE INTRAOCULA (08:21)
[2018-03-27] MEDS: TETRACAINE 0.5% OPHTH DROPS 15 ML 2 DROPS EYE-RIGHT (08:22)
[2018-03-27] MEDS: BALANCED SALT IRRIG SOLN NO.2 500 ML, EPINEPHrine 1 MG IRR (08:22)
[2018-03-27 08:43] VITALS: BP 109/59; PULSE 63; RESP 16; TEMP 36.8; O2SAT 96
--- NOTE | 2018-03-27 09:29 | P.OP.PRE_ITS ---
Pre-operative Note Interval Note Changes: No
--- NOTE | 2018-03-27 09:29 | PM.PREOP ---
Pre-operative Note Interval Note Changes: No
--- NOTE | 2018-03-27 09:29 | PM.OP.1 ---
Operative Date/Time/Diagnoses Pre-op diagnosis: Nuclear cataract right eye Procedure & Clinicians Procedure: Cataract Surgery Same procedure as scheduled: Yes Surgeon: Elliott Valero Anesthesia Type: MAC +/- and Sedation Operative Notes Procedure in detail: Patient brought to the operating suite. Tetracaine drops placed in the right eye. Marking instrument was used to portilol the verticle and horizontal merdian. Patient was prepped and draped in sterile manner. Wire lid speculum was placed in the eye. Betadine drops were placed on the eye. This was irrigated. Lidocaine jelly was placed on the eye. A paracentesis port was created with a side-port blade. 0.1 mL 1% preservative free lidocaine was injected into the anterior chamber. The anterior chamber was deepened with viscoelastic. The pupil was floppy and miotic. 2.6 mm keratome was used to create a temporal clear corneal incision. A 6.25 mm Malyugin ring was used to enlarge the pupil. Cystotome and Utrata forceps were used to create continuous tear capsulorrhexis. Balanced salt solution was used to hydro dissect the nucleus. The phacoemulsification handpiece was inserted and the nucleus was removed using the stop and chop technique. The irrigation aspiration handpiece was inserted and the remaining cortex was removed. Anterior chamber was deepened with viscoelastic. An Barrientos [id number] intraocular lens with a power of 26.0 was injected into the capsular bag. The Malyugin ring was removed. Irrigation aspiration handpiece was inserted and the remaining viscoelastic was removed. The lens was rotated to the 95 degree meridian. Incision was hydrated with balanced salt solution and found to be leak free with pressure with Weck-Thelma sponges. 0.1 mL Vigamox injected anterior chamber. 0.3 mL Kenalog 10 mg was injected subconjunctivally. Lid speculum was removed. The patient left the operating room in excellent condition. Complications: none Condition: stable Disposition: same day surgery
== END 2018-03-27 08:46 ==
LOC: OR 06:47
PROVIDERS: PCP Internal Medicine; Visit Provider Ophthalmology
DX: H25.11 Age-related nuclear cataract, right eye (principal); F41.9 Anxiety disorder, unspecified
CPT/HCPCS: J0171; J2250; J3010; J3301; V2787

== ENCOUNTER → 2018-06-06 10:45 | Outpatient (CLI) | payer MEDICARE, BC, SELFPAY ==
--- NOTE | 2018-06-06 | DI.US.S_ITS ---
PROCEDURE: US RENAL COMPLETE INDICATIONS: Personal history of malignant neoplasm of bladder TECHNIQUE: Real-time scanning was performed of the kidneys and bladder, with image documentation. COMPARISON: [facility], US, ABDOMEN COMPLETE, 06/15/2016, 8:53. [facility], CT, ABDOMEN/PELVIS WITH CONTRAST, 07/27/2017, 11:15. [facility], CT, CT ABDOMEN PELVIS W CON, 11/05/2017, 19:57. FINDINGS: Kidneys: Kidneys are normal in size. Right kidney measures 11.5 cm long; left kidney measures 1.8 cm long. Right renal cortical thickness is 15.5 cm; left renal cortical thickness is 1.8 cm. Renal cortical echotexture is normal. No hydronephrosis or nephrolithiasis. No suspicious solid mass lesions. There are 2 cysts in the left kidney. A 2.7 x 1.4 x 2.2 cm simple cyst is noted in the superior pole. A 2.0 x 2.1 x 2.0 mildly complex cyst is noted in the inferior pole with no nodularity. Bladder: Pre-void bladder volume is 312 mL. Post-void residual is 125 mL. Pre-void images demonstrate no intraluminal masses or stones. On pre-void images, the left ureteral jet is noted with color Doppler interrogation. (Of note, ureteral jets may not be detectable in up to 25% of cases due to insufficient differences in specific gravity between ureteral and bladder urine). Miscellaneous: No free pelvic fluid. IMPRESSION: 1. There is a 125 mL post void residual. No bladder mass is identified on ultrasound. 2. Two left renal cysts. The left inferior pole cyst is slightly complex with neural nodularity. Followup imaging is suggested to document stability. 3. No hydronephrosis. Dictated by: Dany Galicia M.D. on 06/06/2018 at 15:34 Approved by: Dany Galicia M.D. on 06/06/2018 at 15:41
== END ==
PROVIDERS: PCP Internal Medicine; Visit Provider Urology
DX: N28.1 Cyst of kidney, acquired (principal); Z85.51 Personal history of malignant neoplasm of bladder
CPT/HCPCS: 76770

== ENCOUNTER 2019-04-22 08:15 | Outpatient (RCR) | payer MEDICARE, BC, SELFPAY ==
--- NOTE | 2019-04-08 12:00 | PT.OIE ---
Current Diagnoses Dizziness and giddiness (04/08/19) Past Medical History (Last Updated 02/26/19 @ 18:09 by KRISTA Kim) Asthma (Chronic) BPH (benign prostatic hyperplasia) (Chronic) Deep venous thrombosis (Resolved) Gastric ulcer (Resolved) Gout (Chronic) History of colon cancer (Resolved) Hyperlipidemia (Chronic) Hypertension (Chronic) Hypothyroidism (Chronic) Obesity (BMI 30-39.9) (Chronic) Obstructive sleep apnea (Chronic) Pancreatitis (Resolved) Paroxysmal atrial fibrillation (Chronic) Radiation proctitis (Chronic) Type 2 diabetes mellitus (Chronic) Past Surgical History (Last Reviewed 02/26/19 @ 18:03 by KRISTA Kim) History of appendectomy (Resolved) History of partial colectomy (Resolved) Visit Care Team Role Provider Type Adonis Winslow MD Attending Provider Physician Primary Care Provider Specialty: Internal Medicine Address: [address] [place] [address] Email: [email or web address] Initial Evaluation PT-OP-A Visit Information Start: 04/08/19 13:25 Freq: Status: Active Protocol: Document 04/08/19 10:30 AMB (Rec: 04/08/19 16:15 AMB [email or web address]) Out-Patient Physical Therapy Visit Information Visit Information Visit Type Initial Evaluation Visit Start Time 10:30 Visit Stop Time 11:15 Total Visit Minutes 45 Visit Number 1 PT-OP-B Current Condition Start: 04/08/19 13:25 Freq: Status: Active Protocol: Document 04/08/19 10:30 AMB (Rec: 04/09/19 16:25 AMB [email or web address]) Current Condition History of Current Condition Onset Date 1 month ago Current Complaints dizziness - feeling off balance History of Current Condition Pt reports over the last month he has a worsening feeling of being off balance. It is intermittent in nature. He notes currently 2-3 days/ week are good. Today is a good day, yesterday was bad he needed a cane all day. He thinks that head movement makes his feelings worse, especially looking up. He describes the symptoms as a heaviness in his head with a feeling of light nausea. He describes pressure but it is more in the back of his head than in his sinuses. He does have a complicated medical history outlined in personal factors. Treatment Goals Patient/Caregiver Goals Be able to walk and look around without feeling off balance. Personal Factors Other Personal Factors That May Effect Hypertension: pt reports BP Therapy/Recovery ranges from 137/63 to 160/73- states he has had a feeling of lightheadedness in the past but does not feel that is the same issue as what is currently going on. Cancer history: history of bladder cancer (surgery), colon cancer (surgery), prostate cancer (radiation). Bladder cancer being the most recent, gets a bladder scan every 3 months. Vision changes: bilateral lens replacement surgery 1 year ago Diabetes: pt denies neuropathy but does have R leg swelling and history of R LE blood clots PT-OP-C Subjective Start: 04/08/19 13:25 Freq: Status: Active Protocol: Document 04/08/19 10:30 AMB (Rec: 04/09/19 16:25 AMB [email or web address]) Patient Questionnaires ABC- Activity Specific Balance Confidence Scale ABC Score 59 ABC Functional Impairment 40 to <60% Impaired (Score 41- 60) Dizziness Handicap Inventory DHI Score 22 DHI Functional Impairment 20 to 39% Impaired (Score 20- 39) PT-OP-D Balance Start: 04/08/19 13:25 Freq: Status: Active Protocol: Document 04/08/19 10:30 AMB (Rec: 04/08/19 16:24 AMB [email or web address]) Balance Tests mCTSIB mCTSIB Position 1 30sec mCTSIB Position 2 30 sec but increased sway PT-OP-E Functional Tests Start: 04/08/19 13:25 Freq: Status: Active Protocol: Document 04/08/19 10:30 AMB (Rec: 04/08/19 16:24 AMB [email or web address]) Functional Tests Dynamic Gait Index (DGI) Score 20 DGI Impairment Rating 1 to <20% Impaired (Score 20- 23) PT-OP-G Mobility & Gait Start: 04/08/19 13:25 Freq: Status: Active Protocol: Document 04/08/19 10:30 AMB (Rec: 04/08/19 16:24 AMB [email or web address]) OP Gait Assessment Comments Gait Comments Ambulates without assistive device, good speed, slightly WBOS reduced trunk rotation PT-OP-J Posture/Palpation/Skin Start: 04/08/19 13:25 Freq: Status: Active Protocol: Document 04/08/19 10:30 AMB (Rec: 04/08/19 16:24 AMB [email or web address]) Palpation Assessment Location One Palpation Details Pt report a fullness at occiput, but no reproduction of sx with PAs or palpation throughout cervical spine PT-OP-L Special Tests Start: 04/08/19 13:25 Freq: Status: Active Protocol: Document 04/08/19 10:30 AMB (Rec: 04/08/19 16:24 AMB [email or web address]) Special Tests Cervical Spine Special Tests Transverse Ligament Test Results negative Spurling's Test Test Results negative PT-OP-O Vestibular Start: 04/08/19 13:25 Freq: Status: Active Protocol: Document 04/08/19 10:30 AMB (Rec: 04/08/19 16:24 AMB [email or web address]) Vestibular Assessment Screening Tests Sharp-Sunshine Test Negative Visual Testing Smooth Pursuits Horizontal WFL Smooth Pursuits Vertical WFL Saccades Horizontal WFL Saccades Vertical WFL Gaze Evoked Nystagmus With Fixation Negative Thrust Head Negative DVA (Line Degradation) 4 Positional Testing Agency-Hallpike Negative Left,Negative Right Rolling Test Negative Left,Negative Right Supine to Sit Negative Sit to Supine Negative Cervical Vertigo Test Negative PT-OP-T Assessment and Plan Start: 04/08/19 13:25 Freq: Status: Active Protocol: Document 04/08/19 10:30 AMB (Rec: 04/09/19 16:25 AMB [email or web address]) Physical Therapy Assessment Rehab Potential Rehabilitation Potential Good Evaluation Complexity Number of Personal Factors/Comorbidities 3 or More Clinical Presentation at Evaluation Evolving Impairments Impairments Functional Activities, Functional Mobility,Vestibular Goals Two Impairment Dysequilibrium Short Term Goal (STG) Antonio will work at the computer without an increase in symptoms. STG Duration 4 weeks Machine Hose Cutter Goal (LTG) Antonio will walk throughout his home without needing an AD and without feeling off balance. LTG Duration 8 weeks One Impairment Balance Short Term Goal (STG) Antonio will improve his DGI score to 22/24. STG Duration 4 weeks LTG Duration 8 weeks Assessment Summary Assessment Antonio attends physical therapy with recent onset feeling off balance, especially worse with head movement. Unfortunately his symptoms were hard to reproduce during testing. He did not show any nystagmus or dizziness with Agency-Hallpike or horizontal canal testing, so did not show signs of BPPV. Even the DGI which looks at walking with head turns was less provoking that what this therapist thought it would be with the patient's descprition of his symptoms. He did have a 4 line change in the DVA which would be indicative of impairment at the vestibulooccular reflex. Differential diagnosis includes orthostatic hypotension, central dysfunction including mets given his cancer history, cervical dysfunction ( including vascular occlusion), or vestibular dysfunction. Further testing and closely watching his symptoms will be necessary given the lack of testing that reproduced his symptoms today. Physical Therapy Plan Frequency and Duration Frequency of Treatment 1x/Week Duration of Treatment 8 weeks Plan of Care Start Date 04/08/19 Plan of Care End Date 06/03/19 Therapeutic Interventions Therapeutic Interventions Balance Training,Home Exercise Program,Manual Therapy, Neuromuscular Re-education, Therapeutic Activities, Therapeutic Exercises, Vestibular Rehabilitation Next Visit Focus/Plan Next Note Type Treatment Note
--- NOTE | 2019-04-22 16:11 | PT.OTN ---
Current Diagnoses Dizziness and giddiness (04/22/19) Physical Therapy Treatment Note PT-OP-A Visit Information Start: 04/08/19 13:25 Freq: Status: Active Protocol: Document 04/22/19 08:15 AMB (Rec: 04/23/19 16:11 AMB [email or web address]) Out-Patient Physical Therapy Visit Information Visit Information Visit Type Treatment Note Visit Start Time 08:15 Visit Stop Time 09:00 Total Visit Minutes 45 Visit Number 2 PT-OP-B Current Condition Start: 04/08/19 13:25 Freq: Status: Active Protocol: Document 04/08/19 10:30 AMB (Rec: 04/09/19 16:25 AMB [email or web address]) Current Condition History of Current Condition Onset Date 1 month ago Current Complaints dizziness - feeling off balance History of Current Condition Pt reports over the last month he has a worsening feeling of being off balance. It is intermittent in nature. He notes currently 2-3 days/ week are good. Today is a good day, yesterday was bad he needed a cane all day. He thinks that head movement makes his feelings worse, especially looking up. He describes the symptoms as a heaviness in his head with a feeling of light nausea. He describes pressure but it is more in the back of his head than in his sinuses. He does have a complicated medical history outlined in personal factors. Treatment Goals Patient/Caregiver Goals Be able to walk and look around without feeling off balance. Personal Factors Other Personal Factors That May Effect Hypertension: pt reports BP Therapy/Recovery ranges from 137/63 to 160/73- states he has had a feeling of lightheadedness in the past but does not feel that is the same issue as what is currently going on. Cancer history: history of bladder cancer (surgery), colon cancer (surgery), prostate cancer (radiation). Bladder cancer being the most recent, gets a bladder scan every 3 months. Vision changes: bilateral lens replacement surgery 1 year ago Diabetes: pt denies neuropathy but does have R leg swelling and history of R LE blood clots PT-OP-C Subjective Start: 04/08/19 13:25 Freq: Status: Active Protocol: Document 04/22/19 08:15 AMB (Rec: 04/23/19 16:11 AMB [email or web address]) OP-PT Subjective Patient Comments Patient Comments Antonio states that the worst of the vertigo has seemingly resolved. He has not noticed the same feeling of imbalance, but continues to feel lightheaded/nauseous after he has been looking down for an extended period of time and then looks up. Like when he has been working on the computer and then looks up. PT-OP-D Balance Start: 04/08/19 13:25 Freq: Status: Active Protocol: Document 04/08/19 10:30 AMB (Rec: 04/08/19 16:24 AMB [email or web address]) Balance Tests mCTSIB mCTSIB Position 1 30sec mCTSIB Position 2 30 sec but increased sway PT-OP-E Functional Tests Start: 04/08/19 13:25 Freq: Status: Active Protocol: Document 04/08/19 10:30 AMB (Rec: 04/08/19 16:24 AMB [email or web address]) Functional Tests Dynamic Gait Index (DGI) Score 20 DGI Impairment Rating 1 to <20% Impaired (Score 20- 23) PT-OP-G Mobility & Gait Start: 04/08/19 13:25 Freq: Status: Active Protocol: Document 04/08/19 10:30 AMB (Rec: 04/08/19 16:24 AMB [email or web address]) OP Gait Assessment Comments Gait Comments Ambulates without assistive device, good speed, slightly WBOS reduced trunk rotation PT-OP-J Posture/Palpation/Skin Start: 04/08/19 13:25 Freq: Status: Active Protocol: Document 04/08/19 10:30 AMB (Rec: 04/08/19 16:24 AMB [email or web address]) Palpation Assessment Location One Palpation Details Pt report a fullness at occiput, but no reproduction of sx with PAs or palpation throughout cervical spine PT-OP-L Special Tests Start: 04/08/19 13:25 Freq: Status: Active Protocol: Document 04/08/19 10:30 AMB (Rec: 04/08/19 16:24 AMB [email or web address]) Special Tests Cervical Spine Special Tests Transverse Ligament Test Results negative Spurling's Test Test Results negative PT-OP-O Vestibular Start: 04/08/19 13:25 Freq: Status: Active Protocol: Document 04/08/19 10:30 AMB (Rec: 04/08/19 16:24 AMB [email or web address]) Vestibular Assessment Screening Tests Sharp-Sunshine Test Negative Visual Testing Smooth Pursuits Horizontal WFL Smooth Pursuits Vertical WFL Saccades Horizontal WFL Saccades Vertical WFL Gaze Evoked Nystagmus With Fixation Negative Thrust Head Negative DVA (Line Degradation) 4 Positional Testing Sharda-Hallpike Negative Left,Negative Right Rolling Test Negative Left,Negative Right Supine to Sit Negative Sit to Supine Negative Cervical Vertigo Test Negative PT-OP-Q Treatments Start: 04/08/19 13:25 Freq: Status: Active Protocol: Document 04/22/19 08:15 AMB (Rec: 04/23/19 16:11 AMB [email or web address]) Neuro Re-Education Treatment Other Activities 3 Details orthostatics Comments see assessment 2 Details corner balance Comments NBOS vs modified tandem EO/EC/ HT 1 Details VOR Comments NBOS- horizontal PT-OP-T Assessment and Plan Start: 04/08/19 13:25 Freq: Status: Active Protocol: Document 04/22/19 08:15 AMB (Rec: 04/23/19 16:11 AMB [email or web address]) Physical Therapy Assessment Assessment Summary Assessment Pt did have orthostatic hypotension with testing today , dropping from 147/78 in supine to 140/68 in standing. However I did not think that this would explain why he is experiencing nausea when seated and he remains seated but moves his head slightly. Pt was encouraged to return to PCP, he does not show signs of BPPV. At this point symptoms sound as if they are slightly better than at evaluation. Physical Therapy Plan Discharge Physical Therapy Discharge Comments Recommend pt return to physician
== END 2019-05-27 14:10 ==
LOC: PHYS 08:15
PROVIDERS: PCP Internal Medicine; Visit Provider Internal Medicine
DX: R42 Dizziness and giddiness (principal)
CPT/HCPCS: 97112; 97162

== ENCOUNTER → 2019-08-07 10:42 | Outpatient (CLI) | payer MEDICARE, BC, SELFPAY ==
--- NOTE | 2019-08-07 | DI.RAD.S_ITS ---
PROCEDURE: FL BARIUM SWALLOW INDICATIONS: Gastro-esophageal reflux disease with esophagitis COMPARISON: [facility], , BARIUM SWALLOW, 06/15/2016, 9:32. FINDINGS: Function: Esophageal dysmotility. No elicited gastroesophageal reflux. Morphology: Air-contrast images demonstrate normal mucosal morphology. Single contrast views show no esophageal strictures, extrinsic mass effects, or diverticula. Limited images of the stomach demonstrate normal appearance. IMPRESSION: Esophageal dysmotility Dictated by: Wayne Fonseca M.D. on 08/07/2019 at 13:25 Approved by: Wayne Fonseca M.D. on 08/07/2019 at 13:28
== END ==
PROVIDERS: PCP Internal Medicine; Referring Provider Internal Medicine; Visit Provider Internal Medicine
DX: K21.0 Gastro-esophageal reflux disease with esophagitis (principal); K22.4 Dyskinesia of esophagus
CPT/HCPCS: 74220

== ENCOUNTER → 2020-07-07 19:36 | Outpatient (ROUT) | payer MEDICARE, BC, SELFPAY ==
[2020-07-07 20:03] LABS: Add Manual Diff / Slide Review NO; Basophils Absolute Auto 100 /uL (0-100); Basophils Percent Auto 0.9 % (0-2); Eosinophils Absolute Auto 300 /uL (0-450); Eosinophils Percent Auto 3.5 % (2-4); Hematocrit 37.3 % (41-53); Hemoglobin 12.6 g/dL (13.5-17.5); Lymphocytes Absolute Auto 1800 /uL (1100-4500); Lymphocytes Percent Auto 23.9 % (25-40); Mean Corpuscular HGB Conc 33.7 % (30-36); Mean Corpuscular Hemoglobin 32.3 PG (26-34); Monocytes Absolute Auto 600 /uL (0-900); Monocytes Percent Auto 7.9 % (3-14); Neutrophils Absolute Auto 4700 /uL (1500-7000); Neutrophils Percent Auto 63.8 % (50-75); Platelet Count 206 X10^3/uL (150-400); Red Blood Cell Count 3.89 X10^6/uL (4.5-5.9); Red Cell Distribution Width 13.4 % (11.6-14.8); White Blood Cell Count 7.4 X10^3/uL (4.5-11.0)
[2020-07-07 20:15] LABS: Alanine Aminotransferase 25 IU/L (<50); Albumin 3.8 g/dL (3.5-5.0); Albumin Globulin Ratio 1.7 (1.0-2.8); Alkaline Phosphatase 37 U/L (38-126); Aspartate Aminotransferase 26 IU/L (17-59); BUN Creatinine Ratio 21.7 (6-22); Bilirubin Total 0.4 mg/dL (0.2-1.3); Blood Urea Nitrogen 20 mg/dL (9-20); Calcium 9.3 mg/dL (8.4-10.2); Carbon Dioxide 25 mmol/L (22-32); Chloride 107 mmol/L (98-107); Estimated Glomerular Filt Rate > 60.0 mL/min (>60); Globulin 2.3 g/dL (1.7-4.1); Glucose 135 mg/dL (80-110); HEMOLYSIS < 15 (0-50); Potassium 4.3 mmol/L (3.4-5.1); Sodium 137 mmol/L (137-145); Total Protein 6.1 g/dL (6.3-8.2)
[2020-07-07 20:40] LABS: TSH w/ Reflex to FT4 2.73 uIU/mL (0.47-4.68)
== END ==
PROVIDERS: PCP Internal Medicine; Visit Provider Internal Medicine
DX: E11.9 Type 2 diabetes mellitus without complications (principal); R19.7 Diarrhea, unspecified; K21.00 Gastro-esophageal reflux disease with esophagitis, without bleeding
CPT/HCPCS: 80053; 84443; 85025

== ENCOUNTER → 2020-08-17 14:54 | Outpatient (CLI) | payer MEDICARE, BC, SELFPAY ==
[2020-08-17 15:49] LABS: Alanine Aminotransferase 30 IU/L (<50); Albumin 4.2 g/dL (3.5-5.0); Albumin Globulin Ratio 1.8 (1.0-2.8); Alkaline Phosphatase 39 U/L (38-126); Aspartate Aminotransferase 29 IU/L (17-59); BUN Creatinine Ratio 22.8 (6-22); Bilirubin Total 0.3 mg/dL (0.2-1.3); Blood Urea Nitrogen 21 mg/dL (9-20); Calcium 9.3 mg/dL (8.4-10.2); Carbon Dioxide 20 mmol/L (22-32); Chloride 105 mmol/L (98-107); Estimated Glomerular Filt Rate > 60.0 mL/min (>60); Globulin 2.4 g/dL (1.7-4.1); Glucose 166 mg/dL (80-110); HEMOLYSIS < 15 (0-50); Potassium 4.2 mmol/L (3.4-5.1); Sodium 135 mmol/L (137-145); Total Protein 6.6 g/dL (6.3-8.2)
== END ==
PROVIDERS: PCP Internal Medicine; Referring Provider Urology; Visit Provider Urology
DX: R31.0 Gross hematuria (principal); Z85.51 Personal history of malignant neoplasm of bladder
CPT/HCPCS: 36415; 80053

== ENCOUNTER → 2020-08-18 13:21 | Outpatient (CLI) | payer MEDICARE, BC, SELFPAY ==
--- NOTE | 2020-08-18 14:22 | DI.CT.S_ITS ---
PROCEDURE: CT ABDOMEN PELVIS WO/W CON INDICATIONS: Personal history of malignant neoplasm of bladder TECHNIQUE: Optional 5 mm thick noncontrast images acquired from the diaphragm to the symphysis pubis. After the administration of intravenous contrast, 5 mm thick images acquired from the diaphragm to the symphysis pubis after a 10-minute delay. 2 mm thick coronal and sagittal reformats were then performed of the kidneys and ureters. For radiation dose reduction, the following was used: automated exposure control, adjustment of mA and/or kV according to patient size. COMPARISON: [facility], CT, CT ABDOMEN PELVIS WITH CONTRAST, 11/18/2019, 15:30. FINDINGS: Image quality: Excellent. Lung bases: Lung bases are clear. Heart size is normal. Urinary system: Both kidneys are normal in size, without hydronephrosis on pre-contrast images. No left renal stone No perinephric fat stranding. There is normal bilateral renal enhancement. Renal calyces appear normal in morphology when filled with contrast. Opacified portions of both ureters demonstrate normal caliber. Very minimal thickening of the base of the bladder. No bladder luminal mass. No calcified bladder stones. Prostate implant seeds. Small, shrunken prostate. Other solid organs: Liver is normal in size and enhancement. Gallbladder is surgically absent. Biliary system is non dilated. Pancreas enhances normally. Spleen is normal in size and enhancement. No adrenal nodules. Peritoneum and bowel: Remote right colonic resection. Bowel loops demonstrate normal wall thickness and caliber. No free fluid or air. Nodes and vessels: No retroperitoneal or mesenteric adenopathy by size criteria. Aorta and inferior vena cava are normal in size. Abdominal wall: No ventral hernias. Pelvis: No pathologic free pelvic fluid. Right inguinal hernia containing fat. Bones: No suspicious bony lesions. No vertebral body compression fractures. IMPRESSION: 1. Remote right colectomy, prostate implant seeds. 2. Currently, there is no evidence of malignancy. 3. No evidence of metastatic disease in the abdomen and pelvis. 4. Small nonobstructing right renal stone. Dictated by: Henri Seals M.D. on 08/18/2020 at 15:05 Approved by: Henri Seals M.D. on 08/18/2020 at 15:19
== END ==
PROVIDERS: PCP Internal Medicine; Referring Provider Urology; Visit Provider Urology
DX: R31.0 Gross hematuria (principal); N20.0 Calculus of kidney; Z85.51 Personal history of malignant neoplasm of bladder; Z90.49 Acquired absence of other specified parts of digestive tract
CPT/HCPCS: 74178; Q9967

== ENCOUNTER → 2021-07-06 12:39 | Outpatient (CLI) | payer MEDICARE, BC, SELFPAY ==
--- NOTE | 2021-07-06 | DI.RAD.S_ITS ---
PROCEDURE: FL BARIUM SWALLOW INDICATIONS: Dysphagia, unspecified COMPARISON: [facility], CT, CT ABDOMEN PELVIS WO/W CON, 08/18/2020, 13:27. [facility], [place], FL BARIUM SWALLOW, 08/07/2019, 10:06. FINDINGS: Function: There is normal esophageal peristalsis. There is severe gastroesophageal reflux. There is transient obstruction of a calibrated barium tablet at the gastroesophageal junction. Morphology: Air-contrast images demonstrate normal mucosal morphology. Single contrast views show no esophageal strictures, extrinsic mass effects, or diverticula. There is a Schatzki's ring. Limited images of the stomach demonstrate normal appearance. IMPRESSION: 1. Severe gastroesophageal reflux. 2. A Schatzki's ring. 3. Mild obstruction of the calibrated barium pill at the GE junction. Dictated by: Dany Galicia M.D. on 07/06/2021 at 13:38 Approved by: Dany Galicia M.D. on 07/06/2021 at 13:40
== END ==
PROVIDERS: PCP Internal Medicine; Referring Provider Internal Medicine; Visit Provider Internal Medicine
DX: R13.10 Dysphagia, unspecified (principal); K21.9 Gastro-esophageal reflux disease without esophagitis; K22.2 Esophageal obstruction
CPT/HCPCS: 74221

== ENCOUNTER → 2021-07-29 08:54 | Outpatient (CLI) | payer MEDICARE, BC, SELFPAY ==
[2021-07-29 10:24] LABS: COVID-19 CEPHEID PCR (VTM/NP) Negative (Negative)
== END ==
PROVIDERS: PCP Internal Medicine; Referring Provider Internal Medicine; Visit Provider Internal Medicine
DX: Z20.822 Contact with and (suspected) exposure to COVID-19 (principal)
CPT/HCPCS: C9803; U0003; U0005

== ENCOUNTER → 2021-07-29 10:04 | Outpatient (CLI) | payer MEDICARE, BC, SELFPAY ==
--- NOTE | 2021-08-04 09:24 | PM.PFT.1 ---
Pulmonary Function Test Referral & Results Date Patient Seen: 07/29/21 Requesting provider: Jourdan Perkins Results: The spirometry demonstrates an FVC of 3.36 L which is 83% of predicted. The FEV1 was measured at 2.49 L which is 87% of predicted. The FEV1/FVC ratio was 74 which is 104% of predicted. Following the administration of bronchodilator there was no significant change Lung volumes show an SVC of 3.45 L which is 78% of predicted. The diffusing capacity was measured at 26.05 which is 80% of predicted. No hemoglobin value was provided, so no correction for potential anemia could be made, if appropriate. The maximum voluntary ventilation was severely reduced Interpretation: This study demonstrates a mild reduction in lung volumes suggesting mild restrictive lung disease There may also be very mild reduction diffusing capacity suggesting element of disease at the capillary alveolar level There is a much more significant reduction maximum voluntary ventilation which raises the possibility of significant neuromuscular disease Compared to PFTs performed in January 2011, current study shows improvement in FEV1, and previous improvement post bronchodilator seen previously not seen on current study
== END ==
PROVIDERS: PCP Internal Medicine; Referring Provider Internal Medicine; Visit Provider Internal Medicine
DX: R06.02 Shortness of breath (principal); Z87.891 Personal history of nicotine dependence; Z20.822 Contact with and (suspected) exposure to COVID-19
CPT/HCPCS: 94060; 94726; 94729; C9803; U0003; U0005

== ENCOUNTER → 2022-08-08 10:19 | Outpatient (CLI) | payer MEDICARE, BC, SELFPAY ==
--- NOTE | 2022-08-09 23:41 | DI.NM.S_ITS ---
DATE OF SERVICE: 08/08/2022 PROCEDURE: Pharmacological perfusion study. INDICATIONS: Chest pain with a history of paroxysmal AFib, obesity, diabetes mellitus, hypertension. RADIOPHARMACEUTICAL: 25.5 millicurie technetium-99m Myoview IV was injected at stress and 26.9 millicurie technetium-99m Myoview IV was injected at rest. CARDIAC STRESS: The patient underwent pharmacological perfusion study under the supervision of an attending staff. The patient received IV Lexiscan, as per protocol. He remained hemodynamically stable. Mild shortness of breath during Lexiscan infusion. Resting blood pressure 128/78 and heart rate 69 beats per minute. Baseline rhythm was sinus. During stress, no convincing ischemic changes seen. No significant arrhythmias seen. RAW DATA: Significantly increased subdiaphragmatic activity. The patient's weight is 280 pounds. GATED STUDY: Resting LV ejection fraction 66 and stress LV ejection fraction 71% without any obvious wall motion abnormalities. Resting end-diastolic volume 128 mL. TID ratio 0.88, which is within normal limits. Lung/heart ratio 0.34, which is within normal limits. MYOCARDIAL PERFUSION SCAN: Stress supine images were compared to resting supine images. Please note, there are no stress prone images. There appears to be predominantly fixed, moderate-size, mild to moderately decreased perfusion of base to mid inferior wall extending into the inferoapex, as well as basal inferolateral wall. There is no reversible ischemia. CONCLUSION: 1. No obvious reversible ischemia. 2. Predominantly fixed, moderate-size, mild to moderately decreased perfusion of basal to mid inferior wall extending into the inferoapex, as well as basal inferolateral wall. The patient has significantly increased subdiaphragmatic activity, as well as his weight is 280 pounds. Inferior wall is moving well. No wall motion abnormalities. Most likely, we are dealing with tissue attenuation artifact. However, one cannot rule out the possibility of nontransmural myocardial infarction. The patient had exercise perfusion study in April 2016. At that time, also, he had similar perfusion defect. In the presence of normal left ventricular function without any ischemia, overall, low- risk myocardial perfusion study. Antonio Nance - MONICA/tyree/alex doc#: [id number]/job#: [id number] dd: 08/09/2022 17:14:00 dt: 08/09/2022 23:21:00 DICTATING MD/COPIES TO: Jerry Gray MD COPIES MNE: VALERY;
== END ==
PROVIDERS: Referring Provider Internal Medicine; Visit Provider Internal Medicine
DX: R07.89 Other chest pain (principal); I48.0 Paroxysmal atrial fibrillation; E66.9 Obesity, unspecified; E11.9 Type 2 diabetes mellitus without complications; I10 Essential (primary) hypertension
CPT/HCPCS: 78452; 93017; A9502; J2785